=== PATIENT | male | born 1990 | race African-American/Black ===

== ENCOUNTER 2020-10-16 18:30 | Emergency (ER) | payer MEDICAID ==
[~2020-10-16] VITALS: Ht 193 cm; Wt 90.7 kg
[~2020-10-16 18:30] MED LIST: CEPHALEXIN 500500 M3 PO; IBUPROFEN 800800 M1 PO
[2020-10-16 21:18] LABS: ABSOLUTE EOSINOPHILS 0.2 thou/uL (0.0-0.7); ABSOLUTE LYMPHOCYTES 1.5 thou/uL (0.8-5.3); ABSOLUTE MONOCYTES 0.4 thou/uL (0.0-1.2); ABSOLUTE NEUTROPHILS 3.7 thou/uL (1.6-8.1); BASOPHILS 0.6 %; EOSINOPHILS 3.4 %; HEMATOCRIT 36.4 % (42.0-52.0); HEMOGLOBIN 12.2 gm/dL (14.0-18.0); LYMPHOCYTES 25.8 %; MCH 28.9 pg (26.0-34.0); MCHC 33.6 g/dL (28.0-37.0); MPV 7.8 fl. (7.2-11.1); NUCLEATED RBCS 0 /100WBC; PLATELET COUNT* 114 thou/uL (150-400); POLYS 63.2 %; RBC 4.23 mil/uL (4.50-6.00); RDW-CV 14.9 % (10.5-14.5); WBC 5.8 thou/uL (4.0-11.0)
[2020-10-16] MEDS ORDERED: MEDROLDOSEPACK PO (21:18)
[2020-10-16 21:25] LABS: CALCIUM 8.2 mg/dL (8.5-10.1); CREATININE 1.1 mg/dL (0.6-1.3); POTASSIUM 4.1 mmol/L (3.5-5.1)
[2020-10-16 22:00] VITALS: BP 118/79
--- NOTE | 2020-10-17 11:34 | EKG ---
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1990 Requested By: Duglas Jose Order Number: [id number] MD: Rufino Gray Measurements Intervals [place] Rate: 84 P: 51 NC: 172 QRS: 88 QRSD: 103 T: 67 QT: 396 QTc: 469 Interpretive Statements Sinus rhythm Posterior infarct, acute (LCx) ST elevation, consider inferior injury Lateral leads are also involved No previous ECG available for comparison Electronically Signed On 10-17-2020 11:34:18 CDT by Rufino Gray [email or web address] <ELECTRONICALLY SIGNED> By: Jay Gray MD, [facility] 10/17/20 1134 1843 1843 Jay Gray MD, [facility] /EPI
--- NOTE | 2020-10-17 11:34 | EKG ---
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1990 Requested By: Duglas Jose Order Number: [id number] MD: Rufino Gray Measurements Intervals [place] Rate: 76 P: 49 HI: 183 QRS: 90 QRSD: 102 T: 68 QT: 412 QTc: 464 Interpretive Statements Sinus rhythm Borderline right axis deviation Abnormal T, probable ischemia, anterior leads Compared to ECG 10/16/2020 18:43:34 T-wave abnormality now present Possible ischemia now present Myocardial infarct finding no longer present ST (T wave) deviation no longer present Electronically Signed On 10-17-2020 11:34:31 CDT by Rufino Gray [email or web address] <ELECTRONICALLY SIGNED> By: Jay Gray MD, [facility] 10/17/20 1134 51 51 Jay Gray MD, [facility] /EPI
== END 2020-10-16 22:02 | disposition home or self-care (01) ==
LOC: M.ERS 18:30
PROVIDERS: Physician Assistant
DX: R07.89 Other chest pain (principal); Z20.822 Contact with and (suspected) exposure to COVID-19; R06.02 Shortness of breath